=== PATIENT | male | born 1990 ===

== ENCOUNTER 2017-06-21 20:45 | Emergency (ER) | payer SELFPAY ==
[2017-06-21 20:59] VITALS: O2SAT 99
[2017-06-21] MEDS ORDERED: Sodium Chloride 0.9% 1,000 ML IV STA (22:15)
--- NOTE | 2017-06-21 22:18 | ED PDOC ---
HPI: General Adult Time Seen by Provider: 06/21/17 21:34 Chief Complaint (Nursing): Chest Pain Chief Complaint (Provider): substance abuse History Per: Patient History/Exam Limitations: no limitations Onset/Duration Of Symptoms: Hrs (2) Current Symptoms Are (Timing): Better Additional History Per: Patient Additional Complaint(s): 26 y/o male presents to ED for substance abuse. Patient states he bought [address] which he thought was Percocet but states within 20 minutes after taking it he developed chest pain, shallow breathing, and nausea. Patient states he abuses Percocet daily for chronic back pain, and has a specific program in mind he is going to use for rehab. Denies headache, dizziness, vision changes, extremity numbness/weakness, palpitations, abdominal pain, leg pain/swelling, alcohol use. Past Medical History Reviewed: Historical Data, Nursing Documentation, Vital Signs Vital Signs: Last Vital Signs Temp 98.1 F 06/22/17 00:02 Pulse 63 06/22/17 00:02 Resp 17 06/22/17 00:02 BP 124/64 06/22/17 00:02 Pulse Ox 99 06/22/17 00:02 - Medical History PMH: Asthma, Back Problems, Hypercholesterolemia Denies: Chronic Kidney Disease - Surgical History Surgical History: No Surg Hx - Family History Family History: States: Unknown Family Hx - Home Medications Home Medications: Ambulatory Orders Medication Instructions Recorded Famotidine [Pepcid] 20 mg PO BID #14 tab 03/02/16 Ondansetron [Zofran] 4 mg PO Q8H PRN #10 tab 03/02/16 Albuterol 0.083% [Albuterol 0.083% 2.5 mg IH Q4H PRN #25 neb 10/18/16 Inhal Steffi (2.5 mg/3 ml) UD] Albuterol HFA [Ventolin HFA 90 2 puff IH Q4H #1 inhaler 10/18/16 mcg/actuation (8 g)] Baclofen [Lioresal] 1 tab PO TID PRN #15 tab 10/18/16 Naproxen [Naprosyn] 500 mg PO BID PRN #20 tab 10/18/16 predniSONE [Prednisone] 2 tab PO DAILY #10 tab 10/18/16 - Allergies Allergies/Adverse Reactions: Allergies Allergy/AdvReac Type Severity Reaction Status Date / Time No Known Allergies Allergy Verified 06/21/17 20:59 Review of Systems ROS Statement: Except As Marked, All Systems Reviewed And Found Negative Constitutional: Positive for: Weakness Gastrointestinal: Positive for: Nausea Physical Exam - Reviewed Nursing Documentation Reviewed: Yes Vital Signs Reviewed: Yes - Physical Exam Appears: Positive for: Well, Non-toxic, No Acute Distress Head Exam: Positive for: ATRAUMATIC, NORMAL INSPECTION, NORMOCEPHALIC Skin: Positive for: Normal Color Eye Exam: Positive for: Normal appearance, EOMI, PERRL ENT: Positive for: Normal ENT Inspection Cardiovascular/Chest: Positive for: Regular Rate, Rhythm Respiratory: Positive for: Normal Breath Sounds Gastrointestinal/Abdominal: Positive for: Normal Exam Back: Positive for: Normal Inspection Extremity: Positive for: Normal ROM Neurologic/Psych: Positive for: Alert, Oriented - Laboratory Results Result Diagrams: 06/21/17 22:59 06/21/17 22:59 - ECG ECG: Positive for: Viewed By Me (reviewed by ED attending) ECG Rhythm: Positive for: Sinus Rhythm O2 Sat by Pulse Oximetry: 99 - Progress ED Course And Treament: labs, ekg, urine, IV fluids, IV zofran On re-eval, patient states he is feeling better. Tolerating PO. Vitals stable. Patient educated on findings, advised follow up as previously instructed. Return precautions given. Disposition - Clinical Impression Clinical Impression: Polysubstance abuse - Patient ED Disposition Is Patient to be Admitted: No Counseled Patient/Family Regarding: Studies Performed, Diagnosis, Need For Followup - Disposition Disposition: Routine/Home Disposition Time: 00:22 Condition: IMPROVED Instructions: Polysubstance Abuse (ED)
[2017-06-21 23:04] LABS: BASO % 1.1 % (0.0-2.0); EOS # 0.2 K/uL (0.0-0.7); EOS % 3.3 % (0.0-4.0); HEMOGLOBIN 12.3 g/dL (12.0-18.0); LYMPH # 2.5 K/uL (1.0-4.3); LYMPH % 54.3 % (20.0-40.0); MEAN CELL VOLUME 73.1 fl (80.0-94.0); MEAN CORPUSCULAR HGB CONC 31.4 g/dL (33.0-37.0); MEAN PLATELET VOLUME 8.4 fl (7.2-11.7); MONO # 0.5 K/uL (0.0-0.8); MONO % 9.9 % (0.0-10.0); NEUT # 1.5 K/uL (1.8-7.0); NEUT % 31.4 % (50.0-75.0); NRBC % 0.4 % (0.0-0.0); RBC 5.36 Mil/uL (4.40-5.90); RED CELL DISTRIBUTION WIDTH 13.2 % (11.5-14.5); WHITE BLOOD COUNT 4.6 K/uL (4.8-10.8)
[2017-06-21 23:18] LABS: BARBITURATES, UR NEGATIVE (NEGATIVE); BENZODIAZEPINES, UR NEGATIVE (NEGATIVE); PHENCYCLIDINE, UR NEGATIVE (NEGATIVE)
[2017-06-21 23:19] LABS: OPIATES, UR POSITIVE (NEGATIVE)
[2017-06-21 23:30] LABS: ALB/GLOB RATIO 1.5 (1.0-2.1); ALBUMIN 4.3 g/dL (3.5-5.0); ALT/SGPT 41 U/L (21-72); AST/SGOT 24 U/L (17-59); BLOOD UREA NITROGEN 18 mg/dl (9-20); CALCIUM 9.3 mg/dL (8.4-10.2); GFR AFRICAN-AMERICAN > 60; GFR NON-AFRICAN AMERICAN > 60
[2017-06-22 00:03] VITALS: BP 124/64; PULSE 63; RESP 17; TEMP 98.1
--- NOTE | 2017-06-22 21:53 | CARD ---
APPROVED REPORT EKG Measurement Heart [id number] <Conclusion> Normal sinus rhythm Normal ECG
== END 2017-06-22 00:30 | disposition home or self-care (01) ==
LOC: H.ER 20:45
DX: R07.89 Other chest pain (principal); F19.10 Other psychoactive substance abuse, uncomplicated; E78.00 Pure hypercholesterolemia, unspecified; G89.29 Other chronic pain; J45.909 Unspecified asthma, uncomplicated
CPT/HCPCS: 80053; 84484; 85025; 93005; 99282; G0480; J2405; J7040